=== PATIENT | female | born 1925 | race Caucasian/White ===

== ENCOUNTER 2016-03-13 14:19 | Inpatient (IN) | payer MEDICARE ==
[~2016-03-13] VITALS: Ht 154.9 cm; Wt 55.5 kg
--- NOTE | 2016-03-13 15:50 | EKG ---
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
[2016-03-13 16:00] LABS: BASO % 1 % (0-3); EOS % 4 % (0-3); HEMATOCRIT 31.6 % (36.0-47.0); HEMOGLOBIN 10.2 g/dL (12.0-15.5); LYMPH # 1.3 x10^3/uL (1.0-4.8); LYMPH % 20 % (24-48); MEAN CORPUSCULAR HEMOGLOBIN 29 pg (25-35); MEAN CORPUSCULAR HGB CONC 32 g/dL (31-37); MEAN CORPUSCULAR VOLUME 90 fL (79-100); MONO % 6 % (0-9); NEUT % 70 % (31-73); PLATELET COUNT 281 x10^3/uL (140-400); RED BLOOD COUNT 3.52 x10^6/uL (3.50-5.40); RED CELL DISTRIBUTION WIDTH 13.7 % (11.5-14.5); WHITE BLOOD COUNT 6.7 x10^3/uL (4.0-11.0)
[2016-03-13] MEDS ORDERED: IV NORMAL SALINE 1000ML BAG 1,000 ML IV SCH (16:00)
[2016-03-13 16:19] LABS: OBC FLU VALID
[2016-03-13 16:34] LABS: CALCIUM 8.8 mg/dL (8.5-10.1); CREATININE 1.1 mg/dL (0.6-1.0); GFR 46.8; POTASSIUM 4.2 mmol/L (3.5-5.1)
[2016-03-13 16:41] LABS: ALBUMIN 2.8 g/dL (3.4-5.0); ALBUMIN/GLOBULIN RATIO 0.6 (1.0-1.7); TOTAL BILIRUBIN 0.3 mg/dL (0.2-1.0); TOTAL PROTEIN 7.3 g/dL (6.4-8.2)
--- NOTE | 2016-03-13 16:47 | PHYS DOC ---
Past Medical History Past Medical History: Diabetes-Type II, High Cholesterol, Hypertension Additional Past Medical Histor: GLAUCOMA, MACULAR DEGENERATION, VENOUS INSUFFICENCY, Past Surgical History: Appendectomy Alcohol Use: None Drug Use: None Adult General Chief Complaint Chief Complaint: LOWER EXTREMITY SWELLING HPI HPI Patient is a 89 year old female who presents with complaint of lower extremity swelling. Patient states that she has had worsening symptoms over the past 3 days. Patient states that she has developed a small skin tear in the left lower extremity secondary to her edema. Patient was found during triage to have an oxygen saturation of 89% and was placed on 2 L/m of oxygen. Patient has had dyspnea on exertion. Patient has not had any fevers and denies any productive cough. Patient denies any history of congestive heart failure. Patient currently denies any pain. Review of Systems Review of Systems Constitutional: Denies fever or chills [] Eyes: Denies change in visual acuity, redness, or eye pain [] HENT: Denies nasal congestion or sore throat [] Respiratory: Shortness of breath [] Cardiovascular: Lower extremity edema, denies chest pain [] GI: Denies abdominal pain, nausea, vomiting, bloody stools or diarrhea [] : Denies dysuria or hematuria [] Musculoskeletal: Denies back pain or joint pain [] Integument: Denies rash or skin lesions [] Neurologic: Denies headache, focal weakness or sensory changes [] Endocrine: Denies polyuria or polydipsia [] Current Medications Current Medications Current Medications Medications (Trade) Dose Ordered Sig/Indy Start Time Stop Time Status Last Admin Dose Admin Sodium Chloride (Iv Sodium Chloride 0.9% 1000ml Bag) 1,000 ml @ 100 mls/hr Q10H 03/13/16 16:00 03/13/16 17:57 DC 03/13/16 16:39 100 MLS/HR Allergies Allergies Allergies Coded Allergies Type Severity Reaction Last Updated Verified Penicillins Allergy Intermediate 03/13/16 Yes amlodipine Allergy Intermediate 03/13/16 Yes influenza virus vacc trivalent, split Allergy Intermediate 03/13/16 Yes Physical Exam Physical Exam Constitutional: Alert, afebrile, appears in chronically poor health. [] HENT: Normocephalic, atraumatic, bilateral external ears normal, oropharynx moist, no oral exudates, nose normal. [] Eyes: PERRLA, EOMI, conjunctiva normal, no discharge. [] Neck: Normal range of motion, no tenderness, supple, no stridor. [] Cardiovascular:Heart rate regular rhythm, no murmur [] Lungs & Thorax: Nonlabored respirations, rales bilaterally, no wheezes [] Abdomen: Bowel sounds normal, soft, no tenderness, no masses, no pulsatile masses. [] Skin: Warm, dry, no erythema, no rash. [] Back: No tenderness, no CVA tenderness. [] Extremities: No tenderness, no cyanosis, no clubbing, ROM intact, 3+ pitting edema in the bilateral lower extremities. [] Neurologic: Alert and oriented X 3, normal motor function, normal sensory function, no focal deficits noted. [] Current Patient Data Vital Signs Vital Signs Date Time Temp Pulse Resp B/P Pulse Ox O2 Delivery O2 Flow Rate FiO2 03/13/16 14:49 98.2 62 16 168/74 89 Room Air 98.2 Lab Values Laboratory Tests Test 03/13/16 15:38 03/13/16 15:49 White Blood Count 6.7x10^3/uL (4.0-11.0) Red Blood Count 3.52x10^6/uL (3.50-5.40) Hemoglobin 10.2g/dL (12.0-15.5) L Hematocrit 31.6% (36.0-47.0) L Mean Corpuscular Volume 90fL (79-100) Mean Corpuscular Hemoglobin 29pg (25-35) Mean Corpuscular Hemoglobin Concent 32g/dL (31-37) Red Cell Distribution Width 13.7% (11.5-14.5) Platelet Count 281x10^3/uL (140-400) Neutrophils (%) (Auto) 70% (31-73) Lymphocytes (%) (Auto) 20% (24-48) L Monocytes (%) (Auto) 6% (0-9) Eosinophils (%) (Auto) 4% (0-3) H Basophils (%) (Auto) 1% (0-3) Neutrophils # (Auto) 4.7x10^3uL (1.8-7.7) Lymphocytes # (Auto) 1.3x10^3/uL (1.0-4.8) Monocytes # (Auto) 0.4x10^3/uL (0.0-1.1) Eosinophils # (Auto) 0.2x10^3/uL (0.0-0.7) Basophils # (Auto) 0.0x10^3/uL (0.0-0.2) Sodium Level 141mmol/L (136-145) Potassium Level 4.2mmol/L (3.5-5.1) Chloride Level 103mmol/L (98-107) Carbon Dioxide Level 30mmol/L (21-32) Anion Gap 8 (6-14) Blood Urea Nitrogen 31mg/dL (7-20) H Creatinine 1.1mg/dL (0.6-1.0) H Estimated GFR (Cockcroft-Gault) 46.8 BUN/Creatinine Ratio 28 (6-20) H Glucose Level 118mg/dL (70-99) H Calcium Level 8.8mg/dL (8.5-10.1) Total Bilirubin 0.3mg/dL (0.2-1.0) Aspartate Amino Transferase (AST) 15U/L (15-37) Alanine Aminotransferase (ALT) 16U/L (14-59) Alkaline Phosphatase 76U/L (46-116) Creatine Kinase 36U/L (26-192) Creatine Kinase MB (Mass) 0.7ng/mL (0.0-3.6) Creatine Kinase MB Relative Index % (0-4) Troponin I Quantitative < 0.017ng/mL (0.000-0.055) NR-Xmz-L-Type Natriuretic Peptide 1379pg/mL (0-449) H Total Protein 7.3g/dL (6.4-8.2) Albumin 2.8g/dL (3.4-5.0) L Albumin/Globulin Ratio 0.6 (1.0-1.7) L Influenza Type A Antigen Negative (NEGATIVE) Influenza Type B Antigen Negative (NEGATIVE) Laboratory Tests 03/13/16 15:38 Laboratory Tests 03/13/16 15:38 EKG EKG Interpreted by me: Heart rate 53, sinus rhythm, normal intervals, left axis deviation, no acute ST/T-wave abnormalities present [] Radiology/Procedures Radiology/Procedures [facility] [address] [place] [address] IMAGING REPORT Signed PATIENT: SONIA SAGE ACCOUNT: [id number] : 1925 LOCATION: ER AGE: 89 SEX: F EXAM STATUS: REG ER ORD. PHYSICIAN: BRIANDA PLASENCIA MD REASON: shortness of breath PROCEDURE: PORTABLE CHEST 1V Portable chest, 03/13/2016: History: Shortness of breath, lower extremity swelling No previous chest radiographs are available at this time for comparison purposes. The heart is enlarged. There is calcific plaquing and tortuosity of the thoracic aorta. The pulmonary vascularity is normal. There is minimal linear scarring or atelectasis in the left lower chest laterally. Mild pleural thickening inferolaterally on both sides is probably due to scarring. A tiny amount of pleural fluid cannot be entirely excluded. The bony structures are demineralized. IMPRESSION: 1. Cardiomegaly and aortic atherosclerosis. 2. Probable bibasilar pleural/parenchymal scarring. DICTATED and SIGNED BY: RUBEN FRYE MD DATE: 03/13/161658 CC: AMELIE BRUNER MD; BRIANDA PLASENCIA MD ~ [] Course & Med Decision Making Course & Med Decision Making Pertinent Labs and Imaging studies reviewed. (See chart for details) The patient's clinical picture is consistent with acute congestive heart failure. The patient's chest x-ray shows possible pleural fluid versus scarring. I feel that based off clinical exam and history that the patient has pleural fluid. The patient was started on IV Lasix in the emergency department. Patient will be admitted for continued diuresis and cardiology consult. I spoke with Dr. Velazquez who accepted care patient in hospital. Dragon Disclaimer Dragon Disclaimer This electronic medical record was generated, in whole or in part, using a voice recognition dictation system. Departure Departure Impression: Primary Impression: Acute congestive heart failure Additional Impressions: Hypoxia Moderate protein malnutrition Disposition: ADMITTED INPATIENT Admitting Physician: Marika Velazquez Condition: GUARDED Referrals: AMELIE BRUNER MD (PCP) Problem Qualifiers Primary Impression: Acute congestive heart failure Congestive heart failure type: unspecified congestive heart failure type Qualified Code: I50.9 - Heart failure, unspecified BRIANDA PLASENCIA MD Mar 13, 2016 16:47
[2016-03-13 16:49] LABS: CKMB MASS 0.7 ng/mL (0.0-3.6); CREATINE KINASE 36 U/L (26-192)
--- NOTE | 2016-03-13 17:03 | RAD ---
Portable chest, 03/13/2016: History: Shortness of breath, lower extremity swelling No previous chest radiographs are available at this time for comparison purposes. The heart is enlarged. There is calcific plaquing and tortuosity of the thoracic aorta. The pulmonary vascularity is normal. There is minimal linear scarring or atelectasis in the left lower chest laterally. Mild pleural thickening inferolaterally on both sides is probably due to scarring. A tiny amount of pleural fluid cannot be entirely excluded. The bony structures are demineralized. IMPRESSION: 1. Cardiomegaly and aortic atherosclerosis. 2. Probable bibasilar pleural/parenchymal scarring.
[2016-03-13] MEDS ORDERED: ONDANSETRON PF 4 MG/2 ML VIAL. IV PRN ×2 (17:15→17:56)
[2016-03-13] MEDS ORDERED: ACETAMINOPHEN 325 MG TABLET. PO PRN (17:15)
[2016-03-13] MEDS ORDERED: FUROSEMIDE 40 MG/4 ML VIAL IVP ONE (17:30)
[2016-03-13] MEDS ORDERED: HYDROCODONE/APAP 5/325MG TABLET. PO PRN (18:00)
[2016-03-13] MEDS ORDERED: MORPHINE SULFATE 2 MG/ML DISP.SYRIN. IV PRN (18:00)
--- NOTE | 2016-03-13 18:03 | PDOC1 ---
History and Physical Date of Admission Date of Admission DATE: 03/13/16 TIME: 17:57 Identification/Chief Complaint Chief Complaint leg swelling, bilateral Source Source: Chart review, Patient History of Present Illness History of Present Illness 89 y./o [place] female accompanied by dtr today,. pt lives in [facility], brought to ER bec of worsening and persistent bilateral LE swelling, AHs been fighting lymphedema for some time, was on lasix, claims legs got real swollen and sounded like migjht have popped a blister? or oozed with fluid at one point, No SOA, no CP CXR shows pulm edema, BNP elevated, Trops ok, Hgb 10, Crea 1,1 Got lasix 60 IV x [address] Leija to see the pt HX obtained form dtr Pt does not have hx CHF< no home meds prior and ambulates with walker Past Medical History Cardiovascular: No pertinent hx, Other (lymphedema, bilateral) Pulmonary: No pertinent hx GI: No pertinent hx Heme/Onc: No pertinent hx Hepatobiliary: No pertinent hx Psych: No pertinent hx Rheumatologic: No pertinent hx Infectious disease: No pertinent hx ENT: No pertinent hx Renal/: No pertinent hx Endocrine: No pertinent hx Dermatology: No pertinent hx Past Surgical History Past Surgical History: No pertinent history Family History Family History: No Significant Social History Smoke: No ALCOHOL: none Drugs: None Current Problem List Problem List Problems Medical Problems: (1) Acute CHF Status: Acute (2) Acute congestive heart failure Status: Acute Problems: Current Medications Current Medications Current Medications Sodium Chloride (Iv Sodium Chloride 0.9% 1000ml Bag) 1,000 ml @ 100 mls/hr Q10H IV Last administered on 03/13/16 16:39; Start 03/13/16 at 16:00; Stop at 01:59 Ondansetron HCl (Zofran) 4 mg PRN Q8HRS PRN IV NAUSEA/VOMITING; Start 03/13/16 at 17:15; Stop 03/14/16 at 17:14 Acetaminophen (Tylenol) 650 mg PRN Q4HRS PRN PO FEVER; Start 03/13/16 at 17:15 ; Stop 03/14/16 at 17:14 Furosemide (Lasix) 60 mg 1X ONCE IVP Last administered on 1/27/17at 17:40; Start 03/13/16 at 17:30; Stop 03/13/16 at 17:31; Status DC Allergies Allergies: Coded Allergies: Penicillins (Verified Allergy, Intermediate, 03/13/16) amlodipine (Verified Allergy, Intermediate, 03/13/16) influenza virus vacc trivalent, split (Verified Allergy, Intermediate, ) ROS General: No: Appetite, Chills, Fatigue, Malaise, Night Sweats, Other PSYCHOLOGICAL ROS: No: Anxiety, Behavioral Disorder, Concentration difficultie , Decreased libido, Depression, Disorientation, Hallucinations, Hostility, Irritablity, Memory difficulties, Mood Swings, Obsessive thoughts, Other, Physical abuse, Sexual abuse, Sleep disturbances, Suicidal ideation Eyes: No Blurry vision, No Decreased vision, No Double vision, No Dry eyes, No Excessive tearing, No Eye Pain, No Itchy Eyes, No Loss of vision, No Other, No Photophobia, No Scotomata, No Uses contacts, No Uses glasses HEENT: No: Epistaxis, Heacaches, Hearing change, Nasal congestion, Nasal discharge, Oral lesions, Other, Sinus pain, Sneezing, Snoring, Sore Throat, Tinnitus, Vertigo, Visual Changes, Vocal changes ALLERGY AND IMMUNOLOGY: No: Hives, Insect Bite Sensitivity, Itchy/Watery Eyes, Nasal Congestion, Other, Post Nasal Drip, Seasonal Allergies Hematological and Lymphatic: No: Bleeding Problems, Blood Clots, Blood Transfusions, Brusing, Night Sweats, Other, Pallor, Swollen Lymph Nodes ENDOCRINE: No: Breast Changes, Galactorrhea, Hair Pattern Changes, Hot Flashes , Malaise/lethargy, Mood Swings, Other, Palpitations, Polydipsia/polyuria, Skin Changes, Temperature Intolerance, Unexpected Weight Changes Breast: No New/Changing Breast Lumps, No Nipple changes, No Nipple discharge, No Other Respiratory: No: Cough, Hemoptysis, Orthopnea, Other, Pleuritic Pain, SOB with excertion, Shortness of breath, Sputum Changes, Stridor, Tachypnea, Wheezing Cardiovascular: No Chest Pain, No Edema, No Lt Headedness, No Orthopnea, No Other (leg edema), No Palpitations, No Paroxysmal Noc. Dyspnea Gastrointestinal: No Abdominal Pain, No Constipation, No Diarrhea, No Hematochezia, No Melena, No Nausea, No Other, No Vomiting Genitourinary: No , No , No , No , No , No , No , No Discharge, No Dysuria, No Flank Pain, No Frequency, No Hematuria, No Incontinence, No Other, No Pain, No Retention, No Urgency Musculoskeletal: Yes Other (leg edema) Physical Exam General: Alert, Oriented X3, Cooperative, No acute distress HEENT: Atraumatic, PERRLA, EOMI Lungs: Clear to auscultation, Normal air movement Heart: S1S2, RRR, no thrills, no rubs, no gallops, no murmurs Cardiovascular: S1, S2 Breasts: Normal Abdomen: Normal bowel sounds, Soft, No tenderness, No hepatosplenomegaly, No masses Extremities: Other (bilateral pitting edema plus 3-4, cold feet but palpable pulses) Skin: No rashes, No breakdown, No significant lesion Neuro: Normal gait, Normal speech, Strength at 5/5 X4 ext, Normal tone, Sensation intact, Cranial nerves 3-12 NL, Reflexes 2+ Vitals Vitals Vital Signs Date Time Temp Pulse Resp B/P Pulse Ox O2 Delivery O2 Flow Rate FiO2 03/13/16 14:49 98.2 62 16 168/74 89 Room Air 98.2 Labs Labs Laboratory Tests Test 03/13/16 15:38 03/13/16 15:49 White Blood Count 6.7x10^3/uL (4.0-11.0) Red Blood Count 3.52x10^6/uL (3.50-5.40) Hemoglobin 10.2g/dL (12.0-15.5) Hematocrit 31.6% (36.0-47.0) Mean Corpuscular Volume 90fL (79-100) Mean Corpuscular Hemoglobin 29pg (25-35) Mean Corpuscular Hemoglobin Concent 32g/dL (31-37) Red Cell Distribution Width 13.7% (11.5-14.5) Platelet Count 281x10^3/uL (140-400) Neutrophils (%) (Auto) 70% (31-73) Lymphocytes (%) (Auto) 20% (24-48) Monocytes (%) (Auto) 6% (0-9) Eosinophils (%) (Auto) 4% (0-3) Basophils (%) (Auto) 1% (0-3) Neutrophils # (Auto) 4.7x10^3uL (1.8-7.7) Lymphocytes # (Auto) 1.3x10^3/uL (1.0-4.8) Monocytes # (Auto) 0.4x10^3/uL (0.0-1.1) Eosinophils # (Auto) 0.2x10^3/uL (0.0-0.7) Basophils # (Auto) 0.0x10^3/uL (0.0-0.2) Sodium Level 141mmol/L (136-145) Potassium Level 4.2mmol/L (3.5-5.1) Chloride Level 103mmol/L (98-107) Carbon Dioxide Level 30mmol/L (21-32) Anion Gap 8 (6-14) Blood Urea Nitrogen 31mg/dL (7-20) Creatinine 1.1mg/dL (0.6-1.0) Estimated GFR (Cockcroft-Gault) 46.8 BUN/Creatinine Ratio 28 (6-20) Glucose Level 118mg/dL (70-99) Calcium Level 8.8mg/dL (8.5-10.1) Total Bilirubin 0.3mg/dL (0.2-1.0) Aspartate Amino Transf (AST/SGOT) 15U/L (15-37) Alanine Aminotransferase (ALT/SGPT) 16U/L (14-59) Alkaline Phosphatase 76U/L (46-116) Creatine Kinase 36U/L (26-192) Creatine Kinase MB (Mass) 0.7ng/mL (0.0-3.6) Creatine Kinase MB Relative Index % (0-4) Troponin I Quantitative < 0.017ng/mL (0.000-0.055) TU-Viz-O-Type Natriuretic Peptide 1379pg/mL (0-449) Total Protein 7.3g/dL (6.4-8.2) Albumin 2.8g/dL (3.4-5.0) Albumin/Globulin Ratio 0.6 (1.0-1.7) Influenza Type A Antigen Negative (NEGATIVE) Influenza Type B Antigen Negative (NEGATIVE) Laboratory Tests Test 03/13/16 15:38 03/13/16 15:49 White Blood Count 6.7x10^3/uL (4.0-11.0) Red Blood Count 3.52x10^6/uL (3.50-5.40) Hemoglobin 10.2g/dL (12.0-15.5) Hematocrit 31.6% (36.0-47.0) Mean Corpuscular Volume 90fL (79-100) Mean Corpuscular Hemoglobin 29pg (25-35) Mean Corpuscular Hemoglobin Concent 32g/dL (31-37) Red Cell Distribution Width 13.7% (11.5-14.5) Platelet Count 281x10^3/uL (140-400) Neutrophils (%) (Auto) 70% (31-73) Lymphocytes (%) (Auto) 20% (24-48) Monocytes (%) (Auto) 6% (0-9) Eosinophils (%) (Auto) 4% (0-3) Basophils (%) (Auto) 1% (0-3) Neutrophils # (Auto) 4.7x10^3uL (1.8-7.7) Lymphocytes # (Auto) 1.3x10^3/uL (1.0-4.8) Monocytes # (Auto) 0.4x10^3/uL (0.0-1.1) Eosinophils # (Auto) 0.2x10^3/uL (0.0-0.7) Basophils # (Auto) 0.0x10^3/uL (0.0-0.2) Sodium Level 141mmol/L (136-145) Potassium Level 4.2mmol/L (3.5-5.1) Chloride Level 103mmol/L (98-107) Carbon Dioxide Level 30mmol/L (21-32) Anion Gap 8 (6-14) Blood Urea Nitrogen 31mg/dL (7-20) Creatinine 1.1mg/dL (0.6-1.0) Estimated GFR (Cockcroft-Gault) 46.8 BUN/Creatinine Ratio 28 (6-20) Glucose Level 118mg/dL (70-99) Calcium Level 8.8mg/dL (8.5-10.1) Total Bilirubin 0.3mg/dL (0.2-1.0) Aspartate Amino Transf (AST/SGOT) 15U/L (15-37) Alanine Aminotransferase (ALT/SGPT) 16U/L (14-59) Alkaline Phosphatase 76U/L (46-116) Creatine Kinase 36U/L (26-192) Creatine Kinase MB (Mass) 0.7ng/mL (0.0-3.6) Creatine Kinase MB Relative Index % (0-4) Troponin I Quantitative < 0.017ng/mL (0.000-0.055) YF-Lqv-G-Type Natriuretic Peptide 1379pg/mL (0-449) Total Protein 7.3g/dL (6.4-8.2) Albumin 2.8g/dL (3.4-5.0) Albumin/Globulin Ratio 0.6 (1.0-1.7) Influenza Type A Antigen Negative (NEGATIVE) Influenza Type B Antigen Negative (NEGATIVE) VTE Prophylaxis Ordered VTE Prophylaxis Devices: Yes VTE Pharmacological Prophylaxi: Yes Assessment/Plan Assessment/Plan 1/ Bilateral LE edema 2. Pulm edema on CXR 3. Geriatric with mild pCM PLAN; LAsix IV Monitor lytes cards consult Likely will get at least echo Can check US dopplers megan the cold feet - but sensation is completely intact PT/OT OT for lymphedema dw dtr at bedside Seen at KORIN LOPEZ MD Mar 13, 2016 18:02
[2016-03-13 19:31] VITALS: BP 163/53
--- NOTE | 2016-03-13 19:33 | ACF ---
Admission Forms Criteria HEART FAILURE: COMMON COMPLICATIONS Clinical Indications for Inpatient Care (Place 'X' for any and all applicable criteria): Ongoing inpatient care may be indicated for heart failure with ANY ONE of the following (1)(2)(3)(4)(5): [ ]I. Ongoing need for care for primary condition requiring frequent therapy adjustments because of changes in cardiac function (eg, drug dosage changes for drugs that are renally metabolized) [ ]II. New-onset heart failure [ ]III. Heart failure with decreased urine output not responsive to attempts to optimize volume status [ ]IV. Acute cardiac ischemia causing or associated with failure [ X]V. Complications of heart failure, including ANY ONE of the following: [ ]a) Pericardial effusion [ ]b) Symptomatic pleural effusion [X ]c) O2 saturation <90% or PO2 < 60 mm Hg (8.0 kPa) on room air or require baseline supplemental O2 [X ]d) Tachypnea [ X]e) Dyspnea [ ]f) Syncope [ ]g) Change in mental status [ ]h) Acute renal insufficiency that is severe (reduction of more than 50% in estimated glomerular filtration rate from baseline) or progressive reduction of more than 25% in estimated glomerular filtration rate from baseline, with creatinine continuing to rise) [ ]i) Hemodynamic instability [ ]j) Anasarca [ ]k) Clinically significant metabolic abnormalities due to heart failure (eg, new-onset metabolic acidosis) Extended stay beyond goal length of stay for primary condition may be needed until ALL of the following are present(1)(3): [ ]a) Stable and effective diuretic regimen established (or patient on stable dialysis regimen if in chronic renal failure) [ ]b) Breathing comfortably at rest [ ]c) Saturation of arterial oxygen greater than 90% or at acceptable baseline [ ]d) Pulmonary edema absent or improved [ ]e) Hemodynamic stability [ ]f) Volume status acceptable on oral medication [ ]g) Peripheral or sacral edema absent or improved [ ]h) Renal function stable and manageable at a lower level of care [ ]i) Complications (eg, pleural effusion) resolved or manageable at a lower level of care [ ]j) Patient or caregiver has received written discharge instructions or educational material addressing activity level, diet, discharge medications, follow-up appointment, weight monitoring, and what to do if symptoms worsen The original [employer] content created by [employer] has been revised. The portions of the content which have been revised are identified through the use of italic text or in bold, and [facility] has neither reviewed nor approved the modified material.All other unmodified content is copyright [facility]. Please see references footnoted in the original [facility] edition 2016 Admission Criteria Met?: Yes JOAQUIN LLOYD Mar 13, 2016 19:33
[2016-03-13] MEDS ORDERED: CHOL20004 PO (21:25)
[2016-03-13] MEDS ORDERED: DORZ10DR3 OD (21:25)
[2016-03-13] MEDS ORDERED: SPIR25TA3 PO (21:25)
[2016-03-13] MEDS ORDERED: ACET325T9 PO (21:25)
[2016-03-13] MEDS ORDERED: OMEG1CAP6 PO (21:25)
[2016-03-13] MEDS ORDERED: LUTE20CA2 PO (21:25)
[2016-03-13] MEDS ORDERED: ATEN100T PO (21:25)
[2016-03-13] MEDS ORDERED: BIMA2.5D OD (21:25)
[2016-03-13] MEDS ORDERED: HYDR-2868 PO (21:25)
[2016-03-13] MEDS ORDERED: VALS320T2 PO (21:25)
[2016-03-13] MEDS ORDERED: NYST1POW2 PO (21:25)
[2016-03-13] MEDS ORDERED: ALPR0.25 PO (21:25)
[2016-03-13] MEDS ORDERED: SERT25TA4 PO (21:25)
[2016-03-13] MEDS ORDERED: FURO40TA4 PO (21:25)
[2016-03-13] MEDS ORDERED: DONE5TAB33 PO (21:25)
[2016-03-13] MEDS ORDERED: MELO-156 PO (21:25)
[2016-03-13] MEDS ORDERED: CLON0.2T PO (21:25)
[2016-03-13] MEDS ORDERED: SIMV40TA3 PO (21:25)
[2016-03-13] MEDS: ENOXAPARIN 30 MG/0.3 ML DISP.SYRIN. SQ SCH (22:09)
[2016-03-13 22:23] VITALS: BP 117/44
[2016-03-14] MEDS ORDERED: ACETAMINOPHEN 325 MG TABLET. PO PRN (03:30)
[2016-03-14] MEDS ORDERED: ALPRAZOLAM 0.25 MG TABLET PO PRN (03:30)
[2016-03-14 03:40] VITALS: BP 106/51
[2016-03-14 05:31] LABS: BASO % 1 % (0-3); EOS % 3 % (0-3); HEMATOCRIT 29.7 % (36.0-47.0); HEMOGLOBIN 9.9 g/dL (12.0-15.5); LYMPH # 1.9 x10^3/uL (1.0-4.8); LYMPH % 28 % (24-48); MEAN CORPUSCULAR HEMOGLOBIN 30 pg (25-35); MEAN CORPUSCULAR HGB CONC 33 g/dL (31-37); MEAN CORPUSCULAR VOLUME 89 fL (79-100); MONO % 8 % (0-9); NEUT % 61 % (31-73); PLATELET COUNT 239 x10^3/uL (140-400); RED BLOOD COUNT 3.34 x10^6/uL (3.50-5.40); RED CELL DISTRIBUTION WIDTH 13.4 % (11.5-14.5); WHITE BLOOD COUNT 6.7 x10^3/uL (4.0-11.0)
[2016-03-14 05:53] LABS: CALCIUM 8.5 mg/dL (8.5-10.1); CREATININE 0.9 mg/dL (0.6-1.0); POTASSIUM 3.8 mmol/L (3.5-5.1)
[2016-03-14 07:59] VITALS: BP 153/63
--- NOTE | 2016-03-14 08:20 | PDOC2 ---
WILFRIDO DRIVER [employer] 03/14/16 0820: CARDIAC CONSULT DATE OF CONSULT Date of Consult DATE: 03/14/16 TIME: 08:14 REASON FOR CONSULT Reason for Consult: CHF REFERRING PHYSICIAN Referring Physician: Dr. Quinonez SOURCE Source: Chart review, Patient HISTORY OF PRESENT ILLNESS HISTORY OF PRESENT ILLNESS This is an 89 yo female, with history of chronic LE edema, dementia, HTN, and diabetes, who presented with complaints of increasing lower extremity edema. HPI obtain with assistance from granddaughter as patient has dementia and difficulty recalling events. Patient resides as [facility]. LE edema has been ongoing for over 5 years now. Has recently, within the last couple of week , been worse. Left LE skin tears developed as a results of the increasing edema. Patient denies any SOA, SILVA, chest pain, palpitations, diaphoresis, dizziness, orthopnea, or recent illness/fevers. Granddaughter does report that she has noticed some SILVA over the last years but no worse than normal, recently. Report uncontrolled HTN in the past but has lost 50 # over the last couple of years and has much less life stressors and BP has been controlled. Was started on Lasix last week by facility PCP due to increasing edema. Reports compliance with medications. Denies any h/o CHF or previous cardiac workup. PAST MEDICAL HISTORY Cardiovascular: HTN CENTRAL NERVOUS SYSTEM: Dementia, Periperal neuropathy GI: No pertinent hx Heme/Onc: No pertinent hx Hepatobiliary: No pertinent hx Psych: Anxiety, Depression Musculoskeletal: Osteoarthritis Rheumatologic: No pertinent hx Infectious disease: No pertinent hx ENT: No pertinent hx Renal/: Urinary Incontinence Endocrine: Diabetes Dermatology: No pertinent hx PAST SURGICAL HISTORY Past Surgical History: Appendectomy FAMILY HISTORY Family History: Heart Disease, Hypertension SOCIAL HISTORY Smoke: No ALCOHOL: none Drugs: None Lives: Half-Way CURRENT MEDICATIONS CURRENT MEDICATIONS Current Medications Medications (Trade) Dose Ordered Sig/Indy Route PRN Reason Start Time Stop Time Status Last Admin Dose Admin Sodium Chloride (Iv Sodium Chloride 0.9% 1000ml Bag) 1,000 ml @ 100 mls/hr Q10H IV 03/13/16 16:00 03/13/16 17:57 DC 03/13/16 16:39 Furosemide (Lasix) 60 mg 1X ONCE IVP 03/13/16 17:30 03/13/16 17:31 DC 03/13/16 17:40 Enoxaparin Sodium (Lovenox 30mg Syringe) 30 mg Q24H SQ 03/13/16 19:00 03/13/16 22:09 ALLERGIES ALLERGIES: Coded Allergies: Penicillins (Verified Allergy, Intermediate, 03/13/16) amlodipine (Verified Allergy, Intermediate, 03/13/16) influenza virus vacc trivalent, split (Verified Allergy, Intermediate, ) ROS Review of System 14 point ROS conducted with pertinent positives noted above in HPI, although limited due to dementia PHYSICAL EXAM General: Alert, Cooperative, No acute distress, Other (oriented to person and place) HEENT: Atraumatic, Mucous membr. moist/pink Lungs: Clear to auscultation, Normal air movement Heart: Regular rate, Other (2/6 systolic murmur ) Abdomen: Soft, No tenderness Extremities: No cyanosis, Normal pulses, Other (1-2+ bi LE edema, chronic venous stasis changes to bi LE ) Skin: No breakdown, No significant lesion Neuro: Normal speech, Sensation intact Psych/Mental Status: Mood NL, Other (forgetful) MUSCULOSKELETAL: Osteoarthritic changes both hands VITALS VITALS Vital Signs Date Time Temp Pulse Resp B/P Pulse Ox O2 Delivery O2 Flow Rate FiO2 03/14/16 03:40 98.3 51 14 106/51 96 Nasal Cannula 2.0 98.3 LABS Lab: Laboratory Tests Test 03/13/16 15:38 03/13/16 15:49 03/13/16 23:00 03/14/16 05:00 White Blood Count 6.7x10^3/uL (4.0-11.0) 6.7x10^3/uL (4.0-11.0) Red Blood Count 3.52x10^6/uL (3.50-5.40) 3.34x10^6/uL (3.50-5.40) Hemoglobin 10.2g/dL (12.0-15.5) 9.9g/dL (12.0-15.5) Hematocrit 31.6% (36.0-47.0) 29.7% (36.0-47.0) Mean Corpuscular Volume 90fL (79-100) 89fL (79-100) Mean Corpuscular Hemoglobin 29pg (25-35) 30pg (25-35) Mean Corpuscular Hemoglobin Concent 32g/dL (31-37) 33g/dL (31-37) Red Cell Distribution Width 13.7% (11.5-14.5) 13.4% (11.5-14.5) Platelet Count 281x10^3/uL (140-400) 239x10^3/uL (140-400) Neutrophils (%) (Auto) 70% (31-73) 61% (31-73) Lymphocytes (%) (Auto) 20% (24-48) 28% (24-48) Monocytes (%) (Auto) 6% (0-9) 8% (0-9) Eosinophils (%) (Auto) 4% (0-3) 3% (0-3) Basophils (%) (Auto) 1% (0-3) 1% (0-3) Neutrophils # (Auto) 4.7x10^3uL (1.8-7.7) 4.1x10^3uL (1.8-7.7) Lymphocytes # (Auto) 1.3x10^3/uL (1.0-4.8) 1.9x10^3/uL (1.0-4.8) Monocytes # (Auto) 0.4x10^3/uL (0.0-1.1) 0.5x10^3/uL (0.0-1.1) Eosinophils # (Auto) 0.2x10^3/uL (0.0-0.7) 0.2x10^3/uL (0.0-0.7) Basophils # (Auto) 0.0x10^3/uL (0.0-0.2) 0.0x10^3/uL (0.0-0.2) Sodium Level 141mmol/L (136-145) 141mmol/L (136-145) Potassium Level 4.2mmol/L (3.5-5.1) 3.8mmol/L (3.5-5.1) Chloride Level 103mmol/L (98-107) 103mmol/L (98-107) Carbon Dioxide Level 30mmol/L (21-32) 30mmol/L (21-32) Anion Gap 8 (6-14) 8 (6-14) Blood Urea Nitrogen 31mg/dL (7-20) 28mg/dL (7-20) Creatinine 1.1mg/dL (0.6-1.0) 0.9mg/dL (0.6-1.0) Estimated GFR (Cockcroft-Gault) 46.8 59.0 BUN/Creatinine Ratio 28 (6-20) Glucose Level 118mg/dL (70-99) 100mg/dL (70-99) Calcium Level 8.8mg/dL (8.5-10.1) 8.5mg/dL (8.5-10.1) Total Bilirubin 0.3mg/dL (0.2-1.0) Aspartate Amino Transf (AST/SGOT) 15U/L (15-37) Alanine Aminotransferase (ALT/SGPT) 16U/L (14-59) Alkaline Phosphatase 76U/L (46-116) Creatine Kinase 36U/L (26-192) Creatine Kinase MB (Mass) 0.7ng/mL (0.0-3.6) Creatine Kinase MB Relative Index % (0-4) Troponin I Quantitative < 0.017ng/mL (0.000-0.055) < 0.017ng/mL (0.000-0.055) < 0.017ng/mL (0.000-0.055) FO-Fhx-H-Type Natriuretic Peptide 1379pg/mL (0-449) Total Protein 7.3g/dL (6.4-8.2) Albumin 2.8g/dL (3.4-5.0) Albumin/Globulin Ratio 0.6 (1.0-1.7) Influenza Type A Antigen Negative (NEGATIVE) Influenza Type B Antigen Negative (NEGATIVE) ASSESSMENT/PLAN ASSESSMENT/PLAN 1. Chronic LE edema with chronic venous insufficiency NT mildly elevated at 1379, but based upon age adjustment, is insignificant. No overt s/s of acute heart failure. Will check echo in am. LE doppler pending. Supports stocking. Discussed elevating LE 2. Hypertension presently controlled. will monitor to assess need for medication titration if elevated, consider converting atenolol to labetalol for better control. 3. Sinus bradycardia HR noted to be in 30's overnight. Presently in low 50's at rest Will hold atenolol for now and stop clonidine. RN to give atenolol if HR maintained >60. Hydralazine PRN for rebound HTN 4. Diabetes per PCP 5. Dementia Problems: KYREE STEVENS MD 03/14/16 1206: CARDIAC CONSULT ALLERGIES ALLERGIES: Coded Allergies: Penicillins (Verified Allergy, Intermediate, 03/13/16) amlodipine (Verified Allergy, Intermediate, 03/13/16) influenza virus vacc trivalent, split (Verified Allergy, Intermediate, ) ASSESSMENT/PLAN ASSESSMENT/PLAN Patient seen and examined. Agree with DENTAL EQUIPMENT INSTALLER AND SERVICER's assessment and plan. Lower extremity edema most probably secondary to venous insufficiency - improved with Lasix. Patient does not have any clinical evidence for congestive heart failure. Check 2-D echo to assess LV systolic function. Agree with holding atenolol for sinus bradycardia. Plan for outpatient venous duplex scan to assess the significance of venous reflux. Thank you for your consultation. Problems: WILFRIDO DRIVER APRN Mar 14, 2016 08:20 KYREE STEVENS MD Mar 14, 2016 12:06
--- NOTE | 2016-03-14 08:23 | RAD ---
EXAM: Bilateral lower extremity venous Doppler sonogram. HISTORY: Swelling. TECHNIQUE: Grayscale and color Doppler sonographic imaging of the lower activity veins with spectral waveform analysis was performed. COMPARISON: None. FINDINGS: There is normal color flow, normal compressibility and there are normal spectral waveforms within the lower extremity veins. There is bilateral lower extremity soft tissue edema. IMPRESSION: No Doppler evidence of lower extremity venous thrombosis.
[2016-03-14] MEDS: CLONIDINE HCL 0.2 MG TABLET PO SCH ×2 (09:00→21:00)
[2016-03-14] MEDS: ATENOLOL 50 MG TABLET PO SCH (09:00)
[2016-03-14] MEDS: NYSTATIN TOPICAL POWDER 15GM BOTTLE. TP SCH ×2 (09:00→19:55)
[2016-03-14] MEDS: SPIRONOLACTONE 25 MG TABLET PO SCH (09:00)
[2016-03-14] MEDS: DORZOLAMIDE 2% OPHTH SOLUTION 10ML BOTTLE. OD SCH ×2 (09:06→19:56)
[2016-03-14] MEDS: HYDRALAZINE 25 MG TABLET PO SCH ×3 (09:07→19:54)
[2016-03-14] MEDS: LOSARTAN POTASSIUM 50 MG TABLET. PO SCH (09:07)
[2016-03-14] MEDS: MULTIVITAMIN EYE FORMULA CAPSULE. PO SCH (09:07)
[2016-03-14] MEDS: OMEGA-3 FATTY ACIDS/FISH OIL 1,000 MG CAPSULE. PO SCH (09:07)
[2016-03-14] MEDS: FUROSEMIDE 40 MG TABLET PO SCH (09:07)
[2016-03-14] MEDS: MELOXICAM 7.5 MG TABLET PO SCH (09:08)
[2016-03-14 11:56] VITALS: BP 152/44
--- NOTE | 2016-03-14 12:39 | PDOC ---
PROGRESS NOTES Chief Complaint Chief Complaint 1. Bilateral LE edema, venous insuff. 2. Pulm edema on CXR 3. Geriatric with mild pCM, weakness, acquired 4. some dementia 5. symptomatic bradycardia History of Present Illness History of Present Illness better s/p Lasix IV Monitor lytes cards consult DC b-leslie for tamar echo PT/OT OT for lymphedema feels better today, cont current Vitals Vitals Vital Signs Date Time Temp Pulse Resp B/P Pulse Ox O2 Delivery O2 Flow Rate FiO2 03/14/16 11:56 98.4 44 20 152/44 91 Nasal Cannula 2.0 98.4 Physical Exam General: Alert, Cooperative, No acute distress, Other (oriented to person and place) Heart: Regular rate, Other (2/6 systolic murmur ) Abdomen: Soft, No tenderness Extremities: No cyanosis, Normal pulses, Other (1-2+ bi LE edema, chronic venous stasis changes to bi LE ) Skin: No breakdown, No significant lesion Labs LABS Laboratory Tests Test 03/13/16 15:38 03/13/16 15:49 03/13/16 23:00 03/14/16 05:00 White Blood Count 6.7x10^3/uL (4.0-11.0) 6.7x10^3/uL (4.0-11.0) Red Blood Count 3.52x10^6/uL (3.50-5.40) 3.34x10^6/uL (3.50-5.40) Hemoglobin 10.2g/dL (12.0-15.5) 9.9g/dL (12.0-15.5) Hematocrit 31.6% (36.0-47.0) 29.7% (36.0-47.0) Mean Corpuscular Volume 90fL (79-100) 89fL (79-100) Mean Corpuscular Hemoglobin 29pg (25-35) 30pg (25-35) Mean Corpuscular Hemoglobin Concent 32g/dL (31-37) 33g/dL (31-37) Red Cell Distribution Width 13.7% (11.5-14.5) 13.4% (11.5-14.5) Platelet Count 281x10^3/uL (140-400) 239x10^3/uL (140-400) Neutrophils (%) (Auto) 70% (31-73) 61% (31-73) Lymphocytes (%) (Auto) 20% (24-48) 28% (24-48) Monocytes (%) (Auto) 6% (0-9) 8% (0-9) Eosinophils (%) (Auto) 4% (0-3) 3% (0-3) Basophils (%) (Auto) 1% (0-3) 1% (0-3) Neutrophils # (Auto) 4.7x10^3uL (1.8-7.7) 4.1x10^3uL (1.8-7.7) Lymphocytes # (Auto) 1.3x10^3/uL (1.0-4.8) 1.9x10^3/uL (1.0-4.8) Monocytes # (Auto) 0.4x10^3/uL (0.0-1.1) 0.5x10^3/uL (0.0-1.1) Eosinophils # (Auto) 0.2x10^3/uL (0.0-0.7) 0.2x10^3/uL (0.0-0.7) Basophils # (Auto) 0.0x10^3/uL (0.0-0.2) 0.0x10^3/uL (0.0-0.2) Sodium Level 141mmol/L (136-145) 141mmol/L (136-145) Potassium Level 4.2mmol/L (3.5-5.1) 3.8mmol/L (3.5-5.1) Chloride Level 103mmol/L (98-107) 103mmol/L (98-107) Carbon Dioxide Level 30mmol/L (21-32) 30mmol/L (21-32) Anion Gap 8 (6-14) 8 (6-14) Blood Urea Nitrogen 31mg/dL (7-20) 28mg/dL (7-20) Creatinine 1.1mg/dL (0.6-1.0) 0.9mg/dL (0.6-1.0) Estimated GFR (Cockcroft-Gault) 46.8 59.0 BUN/Creatinine Ratio 28 (6-20) Glucose Level 118mg/dL (70-99) 100mg/dL (70-99) Calcium Level 8.8mg/dL (8.5-10.1) 8.5mg/dL (8.5-10.1) Total Bilirubin 0.3mg/dL (0.2-1.0) Aspartate Amino Transf (AST/SGOT) 15U/L (15-37) Alanine Aminotransferase (ALT/SGPT) 16U/L (14-59) Alkaline Phosphatase 76U/L (46-116) Creatine Kinase 36U/L (26-192) Creatine Kinase MB (Mass) 0.7ng/mL (0.0-3.6) Creatine Kinase MB Relative Index % (0-4) Troponin I Quantitative < 0.017ng/mL (0.000-0.055) < 0.017ng/mL (0.000-0.055) < 0.017ng/mL (0.000-0.055) WY-Nbf-Q-Type Natriuretic Peptide 1379pg/mL (0-449) Total Protein 7.3g/dL (6.4-8.2) Albumin 2.8g/dL (3.4-5.0) Albumin/Globulin Ratio 0.6 (1.0-1.7) Influenza Type A Antigen Negative (NEGATIVE) Influenza Type B Antigen Negative (NEGATIVE) Review of Systems Review of Systems no n.v.d Assessment and Plan Assessmemt and Plan Problems Medical Problems: (1) Acute CHF Status: Acute (2) Acute congestive heart failure Status: Acute (3) Hypoxia Status: Acute (4) Moderate protein malnutrition Status: Acute Problems: Comment Review of Relevant I have reviewed the following items clarita (where applicable) has been applied. Labs Laboratory Tests Test 03/13/16 15:38 03/13/16 15:49 03/13/16 23:00 03/14/16 05:00 White Blood Count 6.7x10^3/uL (4.0-11.0) 6.7x10^3/uL (4.0-11.0) Red Blood Count 3.52x10^6/uL (3.50-5.40) 3.34x10^6/uL (3.50-5.40) Hemoglobin 10.2g/dL (12.0-15.5) 9.9g/dL (12.0-15.5) Hematocrit 31.6% (36.0-47.0) 29.7% (36.0-47.0) Mean Corpuscular Volume 90fL (79-100) 89fL (79-100) Mean Corpuscular Hemoglobin 29pg (25-35) 30pg (25-35) Mean Corpuscular Hemoglobin Concent 32g/dL (31-37) 33g/dL (31-37) Red Cell Distribution Width 13.7% (11.5-14.5) 13.4% (11.5-14.5) Platelet Count 281x10^3/uL (140-400) 239x10^3/uL (140-400) Neutrophils (%) (Auto) 70% (31-73) 61% (31-73) Lymphocytes (%) (Auto) 20% (24-48) 28% (24-48) Monocytes (%) (Auto) 6% (0-9) 8% (0-9) Eosinophils (%) (Auto) 4% (0-3) 3% (0-3) Basophils (%) (Auto) 1% (0-3) 1% (0-3) Neutrophils # (Auto) 4.7x10^3uL (1.8-7.7) 4.1x10^3uL (1.8-7.7) Lymphocytes # (Auto) 1.3x10^3/uL (1.0-4.8) 1.9x10^3/uL (1.0-4.8) Monocytes # (Auto) 0.4x10^3/uL (0.0-1.1) 0.5x10^3/uL (0.0-1.1) Eosinophils # (Auto) 0.2x10^3/uL (0.0-0.7) 0.2x10^3/uL (0.0-0.7) Basophils # (Auto) 0.0x10^3/uL (0.0-0.2) 0.0x10^3/uL (0.0-0.2) Sodium Level 141mmol/L (136-145) 141mmol/L (136-145) Potassium Level 4.2mmol/L (3.5-5.1) 3.8mmol/L (3.5-5.1) Chloride Level 103mmol/L (98-107) 103mmol/L (98-107) Carbon Dioxide Level 30mmol/L (21-32) 30mmol/L (21-32) Anion Gap 8 (6-14) 8 (6-14) Blood Urea Nitrogen 31mg/dL (7-20) 28mg/dL (7-20) Creatinine 1.1mg/dL (0.6-1.0) 0.9mg/dL (0.6-1.0) Estimated GFR (Cockcroft-Gault) 46.8 59.0 BUN/Creatinine Ratio 28 (6-20) Glucose Level 118mg/dL (70-99) 100mg/dL (70-99) Calcium Level 8.8mg/dL (8.5-10.1) 8.5mg/dL (8.5-10.1) Total Bilirubin 0.3mg/dL (0.2-1.0) Aspartate Amino Transf (AST/SGOT) 15U/L (15-37) Alanine Aminotransferase (ALT/SGPT) 16U/L (14-59) Alkaline Phosphatase 76U/L (46-116) Creatine Kinase 36U/L (26-192) Creatine Kinase MB (Mass) 0.7ng/mL (0.0-3.6) Creatine Kinase MB Relative Index % (0-4) Troponin I Quantitative < 0.017ng/mL (0.000-0.055) < 0.017ng/mL (0.000-0.055) < 0.017ng/mL (0.000-0.055) TJ-Aco-B-Type Natriuretic Peptide 1379pg/mL (0-449) Total Protein 7.3g/dL (6.4-8.2) Albumin 2.8g/dL (3.4-5.0) Albumin/Globulin Ratio 0.6 (1.0-1.7) Influenza Type A Antigen Negative (NEGATIVE) Influenza Type B Antigen Negative (NEGATIVE) Laboratory Tests Test 03/13/16 15:38 03/13/16 15:49 03/13/16 23:00 03/14/16 05:00 White Blood Count 6.7x10^3/uL (4.0-11.0) 6.7x10^3/uL (4.0-11.0) Red Blood Count 3.52x10^6/uL (3.50-5.40) 3.34x10^6/uL (3.50-5.40) Hemoglobin 10.2g/dL (12.0-15.5) 9.9g/dL (12.0-15.5) Hematocrit 31.6% (36.0-47.0) 29.7% (36.0-47.0) Mean Corpuscular Volume 90fL (79-100) 89fL (79-100) Mean Corpuscular Hemoglobin 29pg (25-35) 30pg (25-35) Mean Corpuscular Hemoglobin Concent 32g/dL (31-37) 33g/dL (31-37) Red Cell Distribution Width 13.7% (11.5-14.5) 13.4% (11.5-14.5) Platelet Count 281x10^3/uL (140-400) 239x10^3/uL (140-400) Neutrophils (%) (Auto) 70% (31-73) 61% (31-73) Lymphocytes (%) (Auto) 20% (24-48) 28% (24-48) Monocytes (%) (Auto) 6% (0-9) 8% (0-9) Eosinophils (%) (Auto) 4% (0-3) 3% (0-3) Basophils (%) (Auto) 1% (0-3) 1% (0-3) Neutrophils # (Auto) 4.7x10^3uL (1.8-7.7) 4.1x10^3uL (1.8-7.7) Lymphocytes # (Auto) 1.3x10^3/uL (1.0-4.8) 1.9x10^3/uL (1.0-4.8) Monocytes # (Auto) 0.4x10^3/uL (0.0-1.1) 0.5x10^3/uL (0.0-1.1) Eosinophils # (Auto) 0.2x10^3/uL (0.0-0.7) 0.2x10^3/uL (0.0-0.7) Basophils # (Auto) 0.0x10^3/uL (0.0-0.2) 0.0x10^3/uL (0.0-0.2) Sodium Level 141mmol/L (136-145) 141mmol/L (136-145) Potassium Level 4.2mmol/L (3.5-5.1) 3.8mmol/L (3.5-5.1) Chloride Level 103mmol/L (98-107) 103mmol/L (98-107) Carbon Dioxide Level 30mmol/L (21-32) 30mmol/L (21-32) Anion Gap 8 (6-14) 8 (6-14) Blood Urea Nitrogen 31mg/dL (7-20) 28mg/dL (7-20) Creatinine 1.1mg/dL (0.6-1.0) 0.9mg/dL (0.6-1.0) Estimated GFR (Cockcroft-Gault) 46.8 59.0 BUN/Creatinine Ratio 28 (6-20) Glucose Level 118mg/dL (70-99) 100mg/dL (70-99) Calcium Level 8.8mg/dL (8.5-10.1) 8.5mg/dL (8.5-10.1) Total Bilirubin 0.3mg/dL (0.2-1.0) Aspartate Amino Transf (AST/SGOT) 15U/L (15-37) Alanine Aminotransferase (ALT/SGPT) 16U/L (14-59) Alkaline Phosphatase 76U/L (46-116) Creatine Kinase 36U/L (26-192) Creatine Kinase MB (Mass) 0.7ng/mL (0.0-3.6) Creatine Kinase MB Relative Index % (0-4) Troponin I Quantitative < 0.017ng/mL (0.000-0.055) < 0.017ng/mL (0.000-0.055) < 0.017ng/mL (0.000-0.055) LS-Owr-N-Type Natriuretic Peptide 1379pg/mL (0-449) Total Protein 7.3g/dL (6.4-8.2) Albumin 2.8g/dL (3.4-5.0) Albumin/Globulin Ratio 0.6 (1.0-1.7) Influenza Type A Antigen Negative (NEGATIVE) Influenza Type B Antigen Negative (NEGATIVE) Medications Current Medications Sodium Chloride (Iv Sodium Chloride 0.9% 1000ml Bag) 1,000 ml @ 100 mls/hr Q10H IV Last administered on 03/13/16 16:39; Start 03/13/16 at 16:00; Stop at 17:57; Status DC Ondansetron HCl (Zofran) 4 mg PRN Q8HRS PRN IV NAUSEA/VOMITING; Start 03/13/16 at 17:15; Stop 03/13/16 at 17:57; Status DC Acetaminophen (Tylenol) 650 mg PRN Q4HRS PRN PO FEVER; Start 03/13/16 at 17:15 ; Stop 03/14/16 at 17:14 Furosemide (Lasix) 60 mg 1X ONCE IVP Last administered on 03/13/16 17:40; Start 03/13/16 at 17:30; Stop 03/13/16 at 17:31; Status DC Ondansetron HCl (Zofran) 4 mg PRN Q6HRS PRN IV NAUSEA/VOMITING; Start 03/13/16 at 17:56 Acetaminophen/ Hydrocodone Bitart (Lortab 5/325) 1 tab PRN Q4HRS PRN PO PAIN; Start 03/13/16 at 18:00 Morphine Sulfate 1 mg PRN Q2HR PRN IV PAIN; Start 03/13/16 at 18:00 Enoxaparin Sodium (Lovenox 30mg Syringe) 30 mg Q24H SQ Last administered on 22:09; Start 03/13/16 at 19:00 Acetaminophen (Tylenol) 650 mg PRN Q6HRS PRN PO MILD PAIN / TEMP; Start at 03:30 Alprazolam (Xanax) 0.25 mg PRN Q8HRS PRN PO ANXIETY / AGITATION; Start at 03:30 Clonidine HCl (Catapres) 0.2 mg BID PO ; Start 03/14/16 at 09:00 Donepezil HCl (Aricept) 5 mg HS PO ; Start 03/14/16 at 21:00 Dorzolamide HCl (Trusopt) 1 drop BID OD Last administered on 03/14/16 09:06; Start 03/14/16 at 09:00 Furosemide (Lasix) 40 mg DAILY PO Last administered on 03/14/16 09:07; Start 03/14/16 at 09:00 Hydralazine HCl (Apresoline) 25 mg TID PO Last administered on 03/14/16 09:07 ; Start 03/14/16 at 09:00 Meloxicam (Mobic) 7.5 mg DAILY PO Last administered on 03/14/16 09:08; Start 03/14/16 at 09:00 Fish Oil (Fish Oil) 1,000 mg DAILY08 PO Last administered on 03/14/16 09:07; Start 03/14/16 at 08:00 Sertraline HCl (Zoloft) 25 mg QHS PO ; Start 03/14/16 at 21:00 Simvastatin (Zocor) 40 mg QHS PO ; Start 03/14/16 at 21:00 Spironolactone (Aldactone) 25 mg DAILY PO Last administered on 03/14/16 09:00 ; Start 03/14/16 at 09:00 Atenolol (Tenormin) 100 mg DAILY PO ; Start 03/14/16 at 09:00 Latanoprost (Xalatan) 1 drop QHS OD ; Start 03/14/16 at 21:00 Multivitamins/ Minerals (Ocuvite Lutein) 1 cap DAILY PO Last administered on 09:07; Start 03/14/16 at 09:00 Nystatin (Nystop) 1 yessi BID TP Last administered on 03/14/16 09:00; Start at 09:00 Losartan Potassium (Cozaar) 100 mg DAILY PO Last administered on 03/14/16 09: 07; Start 03/14/16 at 09:00 Hydralazine HCl (Apresoline) 10 mg PRN Q4HRS PRN IVP ELEVATED BP, SEE COMMENTS ; Start 03/14/16 at 09:30 Active Scripts Active Reported Clonidine Hcl 0.2 Mg Tablet 0.2 Mg PO BID Aricept (Donepezil Hcl) 5 Mg Tablet 5 Mg PO HS Atenolol 100 Mg Tablet 100 Mg PO DAILY Xanax (Alprazolam) 0.25 Mg Tablet 0.25 Mg PO PRN Q8HRS PRN Vitamin D-3 (Cholecalciferol (Vitamin D3)) 2,000 Unit Capsule 1,000 Unit PO Tylenol (Acetaminophen) 325 Mg Tablet 650 Mg PO PRN Q6HRS Spironolactone 25 Mg Tablet 25 Mg PO DAILY Simvastatin 40 Mg Tablet 1 Tab PO QHS Sertraline Hcl 25 Mg Tablet 25 Mg PO QHS Nystatin 1 Each Powder.ea. 1 Each PO BID Meloxicam 7.5 Mg Tablet 7.5 Mg PO DAILY Lutein 20 Mg Capsule 20 Mg PO DAILY Lumigan (Bimatoprost) 2.5 Ml Drops 2.5 Ml OD QHS Hydralazine Hcl 25 Mg Tablet 1 Tab PO TID Furosemide 40 Mg Tablet 40 Mg PO DAILY Fish Oil 1,000 Mg Capsule ([place]-3 Fatty Acids/Fish Oil) 1 Each Capsule 2 Each PO DAILY08 Dorzolamide Hcl 10 Ml Drops 1 Drop OD BID Diovan (Valsartan) 320 Mg Tablet 320 Mg PO DAILY Vitals/I & O Vital Sign - Last 24 Hours 03/13/16 03/13/16 03/13/16 03/13/16 14:49 15:30 16:00 16:30 Temp 98.2 98.2 Pulse 62 44 40 40 Resp 16 16 15 14 B/P 168/74 147/65 178/72 171/69 Pulse Ox 89 98 98 99 O2 Delivery Room Air Nasal Cannula Nasal Cannula Nasal Cannula O2 Flow Rate 2 2 2 03/13/16 03/13/16 03/13/16 03/13/16 17:00 17:30 18:00 19:31 Temp 98.2 98.2 Pulse 40 56 48 46 Resp 15 15 30 20 B/P 165/67 195/77 157/65 163/53 Pulse Ox 98 98 97 98 O2 Delivery Nasal Cannula Nasal Cannula Nasal Cannula Nasal Cannula O2 Flow Rate 2 2 2 2.0 03/13/16 03/13/16 03/13/16 03/14/16 19:31 20:00 22:23 03:40 Temp 98.2 98.3 98.3 98.2 98.3 98.3 Pulse 46 49 51 Resp 20 18 14 B/P 163/53 117/44 106/51 Pulse Ox 98 95 96 O2 Delivery Nasal Cannula Nasal Cannula Nasal Cannula Nasal Cannula O2 Flow Rate 2.0 2.0 2.0 2.0 03/14/16 03/14/16 03/14/16 03/14/16 07:58 07:59 09:07 09:07 Temp 98.3 98.3 Pulse 53 58 58 Resp 19 B/P 153/63 153/63 153/63 Pulse Ox 90 O2 Delivery Nasal Cannula Nasal Cannula O2 Flow Rate 2.0 2.0 03/14/16 11:56 Temp 98.4 98.4 Pulse 44 Resp 20 B/P 152/44 Pulse Ox 91 O2 Delivery Nasal Cannula O2 Flow Rate 2.0 Intake and Output 03/13/16 03/13/16 03/14/16 15:00 23:00 07:00 Intake Total 200 ml 150 ml Output Total 450 ml 125 ml Balance -250 ml 25 ml EUNICE NAIK MD Mar 14, 2016 12:38
[2016-03-14] MEDS ORDERED: BRIM5DRO2 OP (13:41)
[2016-03-14 14:17] VITALS: BP 148/70
[2016-03-14 19:15] VITALS: BP 80/62
[2016-03-14] MEDS: DONEPEZIL HCL 5 MG TABLET. PO SCH (19:55)
[2016-03-14] MEDS: SIMVASTATIN 40 MG TABLET. PO SCH (19:55)
[2016-03-14] MEDS: SERTRALINE 25 MG TABLET. PO SCH (19:55)
[2016-03-14] MEDS: ENOXAPARIN 30 MG/0.3 ML DISP.SYRIN. SQ SCH (19:55)
[2016-03-14] MEDS: LATANOPROST 0.005% OPHTH SOLUTION 2.5ML BOTTLE. OD SCH (19:56)
[2016-03-14] MEDS: hydrALAZINE 20 MG/ML VIAL. IVP PRN (22:04)
[2016-03-14 23:35] VITALS: BP 127/63
[2016-03-15] VITALS (7 sets, daily range): BP systolic 140–197; BP diastolic 50–70
[2016-03-15] MEDS: hydrALAZINE 20 MG/ML VIAL. IVP PRN ×2 (04:03→23:59)
[2016-03-15] MEDS: CLONIDINE HCL 0.2 MG TABLET PO SCH (09:00)
[2016-03-15] MEDS: OMEGA-3 FATTY ACIDS/FISH OIL 1,000 MG CAPSULE. PO SCH (09:30)
[2016-03-15] MEDS: FUROSEMIDE 40 MG TABLET PO SCH (09:30)
[2016-03-15] MEDS: MELOXICAM 7.5 MG TABLET PO SCH (09:30)
[2016-03-15] MEDS: ATENOLOL 50 MG TABLET PO SCH (09:31)
[2016-03-15] MEDS: MULTIVITAMIN EYE FORMULA CAPSULE. PO SCH (09:31)
[2016-03-15] MEDS: HYDRALAZINE 25 MG TABLET PO SCH ×3 (09:31→21:02)
[2016-03-15] MEDS: SPIRONOLACTONE 25 MG TABLET PO SCH (09:31)
[2016-03-15] MEDS: LOSARTAN POTASSIUM 50 MG TABLET. PO SCH (09:32)
[2016-03-15] MEDS: NYSTATIN TOPICAL POWDER 15GM BOTTLE. TP SCH ×2 (09:37→21:03)
[2016-03-15] MEDS: DORZOLAMIDE 2% OPHTH SOLUTION 10ML BOTTLE. OD SCH ×2 (09:37→21:03)
--- NOTE | 2016-03-15 15:37 | PDOC ---
PROGRESS NOTES Chief Complaint Chief Complaint 1. Bilateral LE edema, venous insuff. 2. Pulm edema on CXR 3. Geriatric with mild pCM, weakness, acquired 4. some dementia 5. symptomatic bradycardia 67. HTN runs on high side History of Present Illness History of Present Illness s/p lasix IV still BP high HR 60s, still on atenolol, clonidine PO Dtr at bedside Pt lives in [facility] NO leg swelling, or at least has improved PLAN: dc clonidine BAck tp [facility] if ok with cards Await PT to work with her today Vitals Vitals Vital Signs Date Time Temp Pulse Resp B/P Pulse Ox O2 Delivery O2 Flow Rate FiO2 03/15/16 14:53 54 141/60 03/15/16 11:00 98.1 16 95 Room Air 98.1 03/14/16 23:35 2.0 Physical Exam General: Alert, Cooperative, No acute distress, Other (oriented to person and place) Heart: Regular rate, Other (2/6 systolic murmur ) Abdomen: Soft, No tenderness Extremities: No cyanosis, Normal pulses, Other (1-2+ bi LE edema, chronic venous stasis changes to bi LE ) Skin: No breakdown, No significant lesion Review of Systems Review of Systems denies, CO, SOA, more leg swelling, r0slbssfml, abd pain , dizzy etc Assessment and Plan Assessmemt and Plan Problems Medical Problems: (1) Acute CHF Status: Acute (2) Acute congestive heart failure Status: Acute (3) Hypoxia Status: Acute (4) Moderate protein malnutrition Status: Acute Problems: Comment Review of Relevant I have reviewed the following items clarita (where applicable) has been applied. Labs Laboratory Tests Test 03/13/16 15:38 03/13/16 15:49 03/13/16 23:00 03/14/16 01:30 White Blood Count 6.7x10^3/uL (4.0-11.0) Red Blood Count 3.52x10^6/uL (3.50-5.40) Hemoglobin 10.2g/dL (12.0-15.5) Hematocrit 31.6% (36.0-47.0) Mean Corpuscular Volume 90fL (79-100) Mean Corpuscular Hemoglobin 29pg (25-35) Mean Corpuscular Hemoglobin Concent 32g/dL (31-37) Red Cell Distribution Width 13.7% (11.5-14.5) Platelet Count 281x10^3/uL (140-400) Neutrophils (%) (Auto) 70% (31-73) Lymphocytes (%) (Auto) 20% (24-48) Monocytes (%) (Auto) 6% (0-9) Eosinophils (%) (Auto) 4% (0-3) Basophils (%) (Auto) 1% (0-3) Neutrophils # (Auto) 4.7x10^3uL (1.8-7.7) Lymphocytes # (Auto) 1.3x10^3/uL (1.0-4.8) Monocytes # (Auto) 0.4x10^3/uL (0.0-1.1) Eosinophils # (Auto) 0.2x10^3/uL (0.0-0.7) Basophils # (Auto) 0.0x10^3/uL (0.0-0.2) Sodium Level 141mmol/L (136-145) Potassium Level 4.2mmol/L (3.5-5.1) Chloride Level 103mmol/L (98-107) Carbon Dioxide Level 30mmol/L (21-32) Anion Gap 8 (6-14) Blood Urea Nitrogen 31mg/dL (7-20) Creatinine 1.1mg/dL (0.6-1.0) Estimated GFR (Cockcroft-Gault) 46.8 BUN/Creatinine Ratio 28 (6-20) Glucose Level 118mg/dL (70-99) Calcium Level 8.8mg/dL (8.5-10.1) Total Bilirubin 0.3mg/dL (0.2-1.0) Aspartate Amino Transf (AST/SGOT) 15U/L (15-37) Alanine Aminotransferase (ALT/SGPT) 16U/L (14-59) Alkaline Phosphatase 76U/L (46-116) Creatine Kinase 36U/L (26-192) Creatine Kinase MB (Mass) 0.7ng/mL (0.0-3.6) Creatine Kinase MB Relative Index % (0-4) Troponin I Quantitative < 0.017ng/mL (0.000-0.055) < 0.017ng/mL (0.000-0.055) XS-Tjh-Q-Type Natriuretic Peptide 1379pg/mL (0-449) Total Protein 7.3g/dL (6.4-8.2) Albumin 2.8g/dL (3.4-5.0) Albumin/Globulin Ratio 0.6 (1.0-1.7) Influenza Type A Antigen Negative (NEGATIVE) Influenza Type B Antigen Negative (NEGATIVE) Nasal Screen MRSA (PCR) Negative (Negative) Test 03/14/16 05:00 White Blood Count 6.7x10^3/uL (4.0-11.0) Red Blood Count 3.34x10^6/uL (3.50-5.40) Hemoglobin 9.9g/dL (12.0-15.5) Hematocrit 29.7% (36.0-47.0) Mean Corpuscular Volume 89fL (79-100) Mean Corpuscular Hemoglobin 30pg (25-35) Mean Corpuscular Hemoglobin Concent 33g/dL (31-37) Red Cell Distribution Width 13.4% (11.5-14.5) Platelet Count 239x10^3/uL (140-400) Neutrophils (%) (Auto) 61% (31-73) Lymphocytes (%) (Auto) 28% (24-48) Monocytes (%) (Auto) 8% (0-9) Eosinophils (%) (Auto) 3% (0-3) Basophils (%) (Auto) 1% (0-3) Neutrophils # (Auto) 4.1x10^3uL (1.8-7.7) Lymphocytes # (Auto) 1.9x10^3/uL (1.0-4.8) Monocytes # (Auto) 0.5x10^3/uL (0.0-1.1) Eosinophils # (Auto) 0.2x10^3/uL (0.0-0.7) Basophils # (Auto) 0.0x10^3/uL (0.0-0.2) Sodium Level 141mmol/L (136-145) Potassium Level 3.8mmol/L (3.5-5.1) Chloride Level 103mmol/L (98-107) Carbon Dioxide Level 30mmol/L (21-32) Anion Gap 8 (6-14) Blood Urea Nitrogen 28mg/dL (7-20) Creatinine 0.9mg/dL (0.6-1.0) Estimated GFR (Cockcroft-Gault) 59.0 Glucose Level 100mg/dL (70-99) Calcium Level 8.5mg/dL (8.5-10.1) Troponin I Quantitative < 0.017ng/mL (0.000-0.055) Medications Current Medications Sodium Chloride (Iv Sodium Chloride 0.9% 1000ml Bag) 1,000 ml @ 100 mls/hr Q10H IV Last administered on 03/13/16 16:39; Start 03/13/16 at 16:00; Stop at 17:57; Status DC Ondansetron HCl (Zofran) 4 mg PRN Q8HRS PRN IV NAUSEA/VOMITING; Start 03/13/16 at 17:15; Stop 03/13/16 at 17:57; Status DC Acetaminophen (Tylenol) 650 mg PRN Q4HRS PRN PO FEVER; Start 03/13/16 at 17:15 ; Stop 03/14/16 at 12:52; Status DC Furosemide (Lasix) 60 mg 1X ONCE IVP Last administered on 03/13/16 17:40; Start 03/13/16 at 17:30; Stop 03/13/16 at 17:31; Status DC Ondansetron HCl (Zofran) 4 mg PRN Q6HRS PRN IV NAUSEA/VOMITING; Start 03/13/16 at 17:56 Acetaminophen/ Hydrocodone Bitart (Lortab 5/325) 1 tab PRN Q4HRS PRN PO PAIN; Start 03/13/16 at 18:00 Morphine Sulfate 1 mg PRN Q2HR PRN IV PAIN; Start 03/13/16 at 18:00 Enoxaparin Sodium (Lovenox 30mg Syringe) 30 mg Q24H SQ Last administered on 19:55; Start 03/13/16 at 19:00 Acetaminophen (Tylenol) 650 mg PRN Q6HRS PRN PO MILD PAIN / TEMP; Start at 03:30 Alprazolam (Xanax) 0.25 mg PRN Q8HRS PRN PO ANXIETY / AGITATION; Start at 03:30 Clonidine HCl (Catapres) 0.2 mg BID PO ; Start 03/14/16 at 09:00 Donepezil HCl (Aricept) 5 mg HS PO Last administered on 03/14/16 19:55; Start 03/14/16 at 21:00 Dorzolamide HCl (Trusopt) 1 drop BID OD Last administered on 03/15/16 09:37; Start 03/14/16 at 09:00 Furosemide (Lasix) 40 mg DAILY PO Last administered on 03/15/16 09:30; Start 03/14/16 at 09:00 Hydralazine HCl (Apresoline) 25 mg TID PO Last administered on 03/15/16 14:53 ; Start 03/14/16 at 09:00 Meloxicam (Mobic) 7.5 mg DAILY PO Last administered on 03/15/16 09:30; Start 03/14/16 at 09:00 Fish Oil (Fish Oil) 1,000 mg DAILY08 PO Last administered on 03/15/16 09:30; Start 03/14/16 at 08:00 Sertraline HCl (Zoloft) 25 mg QHS PO Last administered on 03/14/16 19:55; Start 03/14/16 at 21:00 Simvastatin (Zocor) 40 mg QHS PO Last administered on 03/14/16 19:55; Start at 21:00 Spironolactone (Aldactone) 25 mg DAILY PO Last administered on 03/15/16 09:31 ; Start 03/14/16 at 09:00 Atenolol (Tenormin) 100 mg DAILY PO Last administered on 03/15/16 09:31; Start 03/14/16 at 09:00 Latanoprost (Xalatan) 1 drop QHS OD Last administered on 03/14/16 19:56; Start 03/14/16 at 21:00 Multivitamins/ Minerals (Ocuvite Lutein) 1 cap DAILY PO Last administered on 09:31; Start 03/14/16 at 09:00 Nystatin (Nystop) 1 yessi BID TP Last administered on 03/15/16 09:37; Start at 09:00 Losartan Potassium (Cozaar) 100 mg DAILY PO Last administered on 03/15/16 09: 32; Start 03/14/16 at 09:00 Hydralazine HCl (Apresoline) 10 mg PRN Q4HRS PRN IVP ELEVATED BP, SEE COMMENTS Last administered on 03/15/16 04:03; Start 03/14/16 at 09:30 Active Scripts Active Reported Combigan Eye Drops (Brimonidine Tartrate/Timolol) 5 Ml Drops 5 Ml OP BID Clonidine Hcl 0.2 Mg Tablet 0.2 Mg PO BID Aricept (Donepezil Hcl) 5 Mg Tablet 5 Mg PO HS Atenolol 100 Mg Tablet 100 Mg PO DAILY Xanax (Alprazolam) 0.25 Mg Tablet 0.25 Mg PO PRN Q8HRS PRN Vitamin D-3 (Cholecalciferol (Vitamin D3)) 2,000 Unit Capsule 1,000 Unit PO Tylenol (Acetaminophen) 325 Mg Tablet 650 Mg PO PRN Q6HRS Spironolactone 25 Mg Tablet 25 Mg PO DAILY Simvastatin 40 Mg Tablet 1 Tab PO QHS Sertraline Hcl 25 Mg Tablet 25 Mg PO QHS Nystatin 1 Each Powder.ea. 1 Each PO BID Meloxicam 7.5 Mg Tablet 7.5 Mg PO DAILY Lutein 20 Mg Capsule 20 Mg PO DAILY Lumigan (Bimatoprost) 2.5 Ml Drops 2.5 Ml OD QHS Hydralazine Hcl 25 Mg Tablet 1 Tab PO TID Furosemide 40 Mg Tablet 40 Mg PO DAILY Fish Oil 1,000 Mg Capsule ([place]-3 Fatty Acids/Fish Oil) 1 Each Capsule 2 Each PO DAILY08 Dorzolamide Hcl 10 Ml Drops 1 Drop OD BID Diovan (Valsartan) 320 Mg Tablet 320 Mg PO DAILY Vitals/I & O Vital Sign - Last 24 Hours 03/14/16 03/14/16 03/14/16 03/14/16 15:56 19:15 19:54 20:00 Temp 97.9 97.9 Pulse 58 63 56 Resp 18 B/P 142/56 80/62 193/80 Pulse Ox 95 O2 Delivery Nasal Cannula Nasal Cannula O2 Flow Rate 2.0 2.0 03/14/16 03/14/16 03/15/16 03/15/16 22:04 23:35 03:10 04:03 Temp 97.9 98.6 97.9 98.6 Pulse 56 68 78 74 Resp 16 16 B/P 181/84 127/63 183/62 183/62 Pulse Ox 95 93 O2 Delivery Nasal Cannula Room Air O2 Flow Rate 2.0 03/15/16 03/15/16 03/15/16 03/15/16 06:05 07:00 08:01 09:31 Temp 97.4 97.4 Pulse 72 72 Resp 20 B/P 162/70 183/65 183/65 Pulse Ox 91 O2 Delivery Room Air Room Air 03/15/16 03/15/16 03/15/16 03/15/16 09:31 09:32 11:00 14:53 Temp 98.1 98.1 Pulse 72 72 63 54 Resp 16 B/P 183/65 183/65 172/65 141/60 Pulse Ox 95 O2 Delivery Room Air Intake and Output 03/14/16 03/14/16 03/15/16 15:00 23:00 07:00 Intake Total 120 ml Balance 120 ml KORIN AVERY MD Mar 15, 2016 15:37
--- NOTE | 2016-03-15 16:06 | CARD ---
APPROVED REPORT EXAM: Two-dimensional and M-mode echocardiogram with Doppler and color Doppler. Other Information Quality : Average Rhythm : NSR INDICATION Peripheral Edema Murmur 2D DIMENSIONS Left Atrium(2D)3.0 (1.6-4.0cm)IVSd1.2 (0.7-1.1cm) Aortic Root(2D)3.7 (2.0-3.7cm)LVDd5.0 (3.9-5.9cm) LVOT Diameter2.1 (1.8-2.4cm)PWd1.2 (0.7-1.1cm) LVDs3.6 (2.5-4.0cm)FS (%) 27.9 % SV62.2 mlLVEF(%)53.8 (>50%) Aortic Valve AoV Peak Suhail.142.7cm/sAoV VTI33.9cm AO Peak GR.8.1mmHgLVOT VTI 25.99cm AO Mean GR.5mmHgAVA (VTI)2.58cm2 AI P 1/2 [id number] Mitral Valve MV E Qztnqpch66.8cm/sMV E Peak Gr.6mmHg MV DECEL [id number] A Vyazytnq173.0cm/s MV E Mean Gr.2mmHgMV [id number] E/A Ratio0.4MV A [id number] MVA (PHT)4.40cm2 TDI Lateral E' P. V7.72cm/sMedial E' P. V5.73cm/s E/Lateral E'6.1E/Medial E'8.2 Tricuspid Valve TR P. [id number]/sRAP [id number] TR Peak Gr.[id number] LEFT VENTRICLE The left ventricle is normal size. There is borderline concentric left ventricular hypertrophy. Left ventricle systolic function is normal. The Ejection Fraction is 55%. There is normal LV segmental wal l motion. Tissue Doppler imaging reveals mild left ventricular diastolic dysfunction. Transmitral Dop pler flow pattern is Grade I-abnormal relaxation pattern. RIGHT VENTRICLE The right ventricle is normal size. The right ventricular systolic function is normal. ATRIA The left atrium size is normal. The right atrium size is normal. The interatrial septum is intact wit h no evidence for an atrial septal defect or patent foramen ovale as noted on 2-D or Doppler imaging. AORTIC VALVE The aortic valve is trileaflet. Doppler and Color Flow revealed moderate aortic regurgitation. There is no significant aortic valvular stenosis. MITRAL VALVE Mitral annular calcification is mild. There is no mitral valve stenosis. Doppler and Color Flow revea led mild mitral regurgitation. TRICUSPID VALVE The tricuspid valve is normal in structure and function. Doppler and Color Flow revealed mild tricusp id regurgitation. The PA pressure was estimated at 35 mmHg. There is no tricuspid valve stenosis. PULMONIC VALVE The pulmonic valve is not well visualized. Doppler and Color Flow revealed trace pulmonic valvular re gurgitation. There is no pulmonic valvular stenosis. GREAT VESSELS The aortic root is mildly enlarged. The ascending aorta is Severely dilated. The IVC is normal in siz e and collapses >50% with inspiration. PERICARDIAL EFFUSION There is no evidence of significant pericardial effusion. Critical Notification Physician Notified Date: 03/15/2016 Time: 10:12 Physician Name:Dr. Leija Critical Value: Yes <Conclusion> Left ventricle systolic function is normal. The Ejection Fraction is 55%. There is normal LV segmental wall motion. Transmitral Doppler flow pattern is Grade I-abnormal relaxation pattern. The ascending aorta is everely dilated at 6.3 cm. Moderate aortic regurgitation. Mld mitral regurgitation. Mild tricuspid regurgitation. The PA pressure was estimated at 35 mmHg. There is no evidence of significant pericardial effusion.
[2016-03-15] MEDS: ENOXAPARIN 30 MG/0.3 ML DISP.SYRIN. SQ SCH (18:00)
[2016-03-15] MEDS: SERTRALINE 25 MG TABLET. PO SCH (21:02)
[2016-03-15] MEDS: SIMVASTATIN 40 MG TABLET. PO SCH (21:02)
[2016-03-15] MEDS: DONEPEZIL HCL 5 MG TABLET. PO SCH (21:02)
[2016-03-15] MEDS: LATANOPROST 0.005% OPHTH SOLUTION 2.5ML BOTTLE. OD SCH (21:03)
[2016-03-16 03:00] VITALS: BP 168/74
[2016-03-16 07:00] VITALS: BP 201/83
[2016-03-16] MEDS: MULTIVITAMIN EYE FORMULA CAPSULE. PO SCH (08:29)
[2016-03-16] MEDS: OMEGA-3 FATTY ACIDS/FISH OIL 1,000 MG CAPSULE. PO SCH (08:29)
[2016-03-16] MEDS: FUROSEMIDE 40 MG TABLET PO SCH (08:30)
[2016-03-16] MEDS: ATENOLOL 50 MG TABLET PO SCH (08:30)
[2016-03-16] MEDS: SPIRONOLACTONE 25 MG TABLET PO SCH (08:30)
[2016-03-16] MEDS: LOSARTAN POTASSIUM 50 MG TABLET. PO SCH (08:31)
[2016-03-16] MEDS: MELOXICAM 7.5 MG TABLET PO SCH (08:31)
[2016-03-16] MEDS: hydrALAZINE 20 MG/ML VIAL. IVP PRN (08:34)
[2016-03-16] MEDS: NYSTATIN TOPICAL POWDER 15GM BOTTLE. TP SCH (08:35)
[2016-03-16] MEDS: DORZOLAMIDE 2% OPHTH SOLUTION 10ML BOTTLE. OD SCH (08:35)
[2016-03-16] MEDS: HYDRALAZINE 25 MG TABLET PO SCH (09:22)
[2016-03-16 10:46] VITALS: BP 139/63
--- NOTE | 2016-03-16 11:55 | PDOC ---
PROGRESS NOTES Chief Complaint Chief Complaint 1. Bilateral LE edema, venous insuff. 2. Pulm edema on CXR 3. Geriatric with mild pCM, weakness, acquired 4. some dementia 5. symptomatic bradycardia 67. HTN runs on high side History of Present Illness History of Present Illness s/p lasix IV BP high HX bradycardia - clinidien dcd No issues, dtr at bedside legs better] \Pt lives in [facility] LT[facility] PALN: Inc hydralazine to 50 TID Ok to dc to [facility] if ok with cards Dw RN Vitals Vitals Vital Signs Date Time Temp Pulse Resp B/P Pulse Ox O2 Delivery O2 Flow Rate FiO2 03/16/16 10:46 97.9 49 18 139/63 92 Room Air 97.9 Physical Exam General: Alert, Cooperative, No acute distress, Other (oriented to person and place) Heart: Regular rate, Other (2/6 systolic murmur ) Abdomen: Soft, No tenderness Extremities: No cyanosis, Normal pulses, Other (1-2+ bi LE edema, chronic venous stasis changes to bi LE ) Skin: No breakdown, No significant lesion Review of Systems Review of Systems asleep - did not awaken Assessment and Plan Assessmemt and Plan Problems Medical Problems: (1) Acute CHF Status: Acute (2) Acute congestive heart failure Status: Acute (3) Hypoxia Status: Acute (4) Moderate protein malnutrition Status: Acute Problems: Comment Review of Relevant I have reviewed the following items clarita (where applicable) has been applied. Medications Current Medications Sodium Chloride (Iv Sodium Chloride 0.9% 1000ml Bag) 1,000 ml @ 100 mls/hr Q10H IV Last administered on 03/13/16 16:39; Start 03/13/16 at 16:00; Stop at 17:57; Status DC Ondansetron HCl (Zofran) 4 mg PRN Q8HRS PRN IV NAUSEA/VOMITING; Start 03/13/16 at 17:15; Stop 03/13/16 at 17:57; Status DC Acetaminophen (Tylenol) 650 mg PRN Q4HRS PRN PO FEVER; Start 03/13/16 at 17:15 ; Stop 03/14/16 at 12:52; Status DC Furosemide (Lasix) 60 mg 1X ONCE IVP Last administered on 03/13/16 17:40; Start 03/13/16 at 17:30; Stop 03/13/16 at 17:31; Status DC Ondansetron HCl (Zofran) 4 mg PRN Q6HRS PRN IV NAUSEA/VOMITING; Start 03/13/16 at 17:56 Acetaminophen/ Hydrocodone Bitart (Lortab 5/325) 1 tab PRN Q4HRS PRN PO PAIN; Start 03/13/16 at 18:00 Morphine Sulfate 1 mg PRN Q2HR PRN IV PAIN; Start 03/13/16 at 18:00 Enoxaparin Sodium (Lovenox 30mg Syringe) 30 mg Q24H SQ Last administered on 18:00; Start 03/13/16 at 19:00 Acetaminophen (Tylenol) 650 mg PRN Q6HRS PRN PO MILD PAIN / TEMP; Start at 03:30 Alprazolam (Xanax) 0.25 mg PRN Q8HRS PRN PO ANXIETY / AGITATION; Start at 03:30 Clonidine HCl (Catapres) 0.2 mg BID PO ; Start 03/14/16 at 09:00; Stop 03/15/16 at 15:38; Status DC Donepezil HCl (Aricept) 5 mg HS PO Last administered on 03/15/16 21:02; Start 03/14/16 at 21:00 Dorzolamide HCl (Trusopt) 1 drop BID OD Last administered on 03/16/16 08:35; Start 03/14/16 at 09:00 Furosemide (Lasix) 40 mg DAILY PO Last administered on 03/16/16 08:30; Start 03/14/16 at 09:00 Hydralazine HCl (Apresoline) 25 mg TID PO Last administered on 03/16/16 09:22 ; Start 03/14/16 at 09:00; Stop 03/16/16 at 09:31; Status DC Meloxicam (Mobic) 7.5 mg DAILY PO Last administered on 03/16/16 08:31; Start 03/14/16 at 09:00 Fish Oil (Fish Oil) 1,000 mg DAILY08 PO Last administered on 03/16/16 08:29; Start 03/14/16 at 08:00 Sertraline HCl (Zoloft) 25 mg QHS PO Last administered on 03/15/16 21:02; Start 03/14/16 at 21:00 Simvastatin (Zocor) 40 mg QHS PO Last administered on 03/15/16 21:02; Start at 21:00 Spironolactone (Aldactone) 25 mg DAILY PO Last administered on 03/16/16 08:30 ; Start 03/14/16 at 09:00 Atenolol (Tenormin) 100 mg DAILY PO Last administered on 03/16/16 08:30; Start 03/14/16 at 09:00 Latanoprost (Xalatan) 1 drop QHS OD Last administered on 03/15/16 21:03; Start 03/14/16 at 21:00 Multivitamins/ Minerals (Ocuvite Lutein) 1 cap DAILY PO Last administered on 08:29; Start 03/14/16 at 09:00 Nystatin (Nystop) 1 yessi BID TP Last administered on 03/16/16 08:35; Start at 09:00 Losartan Potassium (Cozaar) 100 mg DAILY PO Last administered on 03/16/16 08: 31; Start 03/14/16 at 09:00 Hydralazine HCl (Apresoline) 10 mg PRN Q4HRS PRN IVP ELEVATED BP, SEE COMMENTS Last administered on 03/16/16 08:34; Start 03/14/16 at 09:30 Hydralazine HCl (Apresoline) 50 mg TID PO ; Start 03/16/16 at 14:00 Active Scripts Active Reported Combigan Eye Drops (Brimonidine Tartrate/Timolol) 5 Ml Drops 5 Ml OP BID Clonidine Hcl 0.2 Mg Tablet 0.2 Mg PO BID Aricept (Donepezil Hcl) 5 Mg Tablet 5 Mg PO HS Atenolol 100 Mg Tablet 100 Mg PO DAILY Xanax (Alprazolam) 0.25 Mg Tablet 0.25 Mg PO PRN Q8HRS PRN Vitamin D-3 (Cholecalciferol (Vitamin D3)) 2,000 Unit Capsule 1,000 Unit PO Tylenol (Acetaminophen) 325 Mg Tablet 650 Mg PO PRN Q6HRS Spironolactone 25 Mg Tablet 25 Mg PO DAILY Simvastatin 40 Mg Tablet 1 Tab PO QHS Sertraline Hcl 25 Mg Tablet 25 Mg PO QHS Nystatin 1 Each Powder.ea. 1 Each PO BID Meloxicam 7.5 Mg Tablet 7.5 Mg PO DAILY Lutein 20 Mg Capsule 20 Mg PO DAILY Lumigan (Bimatoprost) 2.5 Ml Drops 2.5 Ml OD QHS Hydralazine Hcl 25 Mg Tablet 1 Tab PO TID Furosemide 40 Mg Tablet 40 Mg PO DAILY Fish Oil 1,000 Mg Capsule ([place]-3 Fatty Acids/Fish Oil) 1 Each Capsule 2 Each PO DAILY08 Dorzolamide Hcl 10 Ml Drops 1 Drop OD BID Diovan (Valsartan) 320 Mg Tablet 320 Mg PO DAILY Vitals/I & O Vital Sign - Last 24 Hours 03/15/16 03/15/16 03/15/16 03/15/16 14:53 15:34 19:10 20:00 Temp 98.1 97.8 98.1 97.8 Pulse 54 54 55 Resp 16 20 B/P 141/60 140/61 174/50 Pulse Ox 95 91 O2 Delivery Room Air Room Air Room Air 03/15/16 03/15/16 03/15/16 03/16/16 21:02 23:35 23:59 03:00 Temp 98.2 98.1 98.2 98.1 Pulse 55 66 62 52 Resp 20 20 B/P 174/50 197/65 166/102 168/74 Pulse Ox 93 95 O2 Delivery Room Air Room Air 03/16/16 03/16/16 03/16/16 03/16/16 07:00 08:30 08:31 08:34 Temp 97.6 97.6 Pulse 48 50 50 56 Resp 17 B/P 201/83 201/83 201/83 201/83 Pulse Ox 91 O2 Delivery Room Air 03/16/16 03/16/16 09:22 10:46 Temp 97.9 97.9 Pulse 57 49 Resp 18 B/P 201/83 139/63 Pulse Ox 92 O2 Delivery Room Air Intake and Output 03/15/16 03/15/16 03/16/16 15:00 23:00 07:00 Intake Total 120 ml 100 ml Output Total 100 ml 3 ml Balance 20 ml 97 ml KORIN AVERY MD Mar 16, 2016 11:55
--- NOTE | 2016-03-16 12:42 | PDOC ---
CARDIO Progress Notes Date and Time Date of Service 03/16/16 Time of Evaluation 1315 Subjective Subjective: No Chest Pain, No shortness of breath, No Palpitations Vitals Vitals Vital Signs Date Time Temp Pulse Resp B/P Pulse Ox O2 Delivery O2 Flow Rate FiO2 03/16/16 10:46 97.9 49 18 139/63 92 Room Air 97.9 Weight Weight [ ] Input and Output Intake and Output Intake and Output 03/16/16 07:00 Intake Total 220 ml Output Total 103 ml Balance 117 ml Intake Oral 120 ml Blood Product IV Normal Saline Flush 100 ml Output Urine Total 103 ml # Voids 2 # Bowel Movements 5 Physical Exam HEENT: Neck Supple W Full Motion Chest: Symmetric LUNGS: Clear to Auscultation Heart: S1S2, RRR Abdomen: Soft N/T Extremities: 2+ Dorsalis Pedis, No Edema Neurology: alert, follow commands, confused Assessment Assessment 1. Chronic LE edema likely secondary to chronic venous insufficiency. Improved with lasix. No clinical evidence of acute heart failure. Echo notable for Grade 1 abnormal relaxation pattern; LVEF 55%. Plan for outpatient venous duplex scan to assess the significance of venous reflux. May discharge from a cardiac standpoint and f/u in our office with Dr. Leija in 1 month. 2. Hypertension labile with clonidine discontinued. Hydralazine increased 3. Sinus bradycardia, improved clonidine discontinue hold atenolol as needed. 4. Diabetes per PCP 5. Dementia 6. Ascending aortic aneurysm dilated at 6.3 cm per echo recommend medical management given advanced age, physical capability, and dementia DPOA requesting to make patient DNR/DNI- will consult social work for outs of hospital DNR WILFRIDO DRIVER APRN Mar 16, 2016 12:41
[2016-03-16] MEDS ORDERED: HYDRALAZINE 25 MG TABLET PO SCH (14:00)
[2016-03-16 14:15] VITALS: BP 139/63
--- NOTE | 2016-03-16 14:31 | PDOC3 ---
Discharge Summary Visit Information Date of Admission: Mar 13, 2016 Date of Discharge: Mar 16, 2016 Admitting Diagnosis Comment: 1. Bilateral LE edema, venous insuff. 2. Pulm edema on CXR 3. Geriatric with mild pCM, weakness, acquired 4. some dementia 5. symptomatic bradycardia 67. HTN runs on high side Final Diagnosis Problems Medical Problems: (1) Acute CHF Status: Acute (2) Acute congestive heart failure Status: Acute (3) Dementia Status: Acute (4) Hypoxia Status: Acute (5) Moderate protein malnutrition Status: Acute Brief Hospital Course Allergies Allergies Coded Allergies Type Severity Reaction Last Updated Verified Penicillins Allergy Intermediate 03/13/16 Yes amlodipine Allergy Intermediate 03/13/16 Yes influenza virus vacc trivalent, split Allergy Intermediate 03/13/16 Yes Vital Signs Vital Signs Date Time Temp Pulse Resp B/P Pulse Ox O2 Delivery O2 Flow Rate FiO2 03/16/16 14:15 49 139/63 03/16/16 10:46 97.9 18 92 Room Air 97.9 Brief Hospital Course Ms. Loza is a 89 old FEmale lives in SNU admitted for LE edema, treated with IV lasix, better, co managed with cards. Echo shows good ef but very dilated ascending aorta, course remarkable for bradycardia needed to stop clonidine, bP on high side, needed to inc hydralazine megan given dilated aorta to 6.3 cm (need to control BP). 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 Information Condition at Discharge: Improved, Stable Disposition/Orders: Other (snf) Scheduled Acetaminophen (Tylenol) 650 MG PO PRN Q6HRS (Reported) Atenolol (Atenolol) 100 MG PO DAILY (Reported) Bimatoprost (Lumigan) 2.5 ML OD QHS (Reported) Brimonidine Tartrate/Timolol (Combigan Eye Drops) 5 ML OP BID (Reported) Clonidine Hcl (Clonidine Hcl) 0.2 MG PO BID (Reported) Donepezil Hcl (Aricept) 5 MG PO HS (Reported) Dorzolamide Hcl (Dorzolamide Hcl) 1 DROP OD BID (Reported) Furosemide (Furosemide) 40 MG PO DAILY (Reported) Hydralazine Hcl (Hydralazine Hcl) 1 TAB PO TID (Reported) Lutein (Lutein) 20 MG PO DAILY (Reported) Meloxicam (Meloxicam) 7.5 MG PO DAILY (Reported) Nystatin (Nystatin) 1 EACH PO BID (Reported) [place]-3 Fatty Acids/Fish Oil (Fish Oil 1,000 Mg Capsule) 2 EACH PO DAILY08 ( Reported) Sertraline Hcl (Sertraline Hcl) 25 MG PO QHS (Reported) Simvastatin (Simvastatin) 1 TAB PO QHS (Reported) Spironolactone (Spironolactone) 25 MG PO DAILY (Reported) Valsartan (Diovan) 320 MG PO DAILY (Reported) Scheduled PRN Alprazolam (Xanax) 0.25 MG PO PRN Q8HRS PRN PRN ANXIETY / AGITATION (Reported) Miscellaneous Medications Cholecalciferol (Vitamin D3) (Vitamin D-3) 1,000 UNIT PO (Reported) KORIN AVERY MD Mar 16, 2016 14:31
== END 2016-03-16 15:55 | DRG 300 ==
LOC: ER 14:19 → 2 SOUTH 16:43
PROVIDERS: ADMIT Internal Medicine; ATTEND Internal Medicine
DX: I87.2 Venous insufficiency (chronic) (peripheral) (principal); E44.0 Moderate protein-calorie malnutrition; J81.1 Chronic pulmonary edema; R00.1 Bradycardia, unspecified; E11.9 Type 2 diabetes mellitus without complications; E78.00 Pure hypercholesterolemia, unspecified; F03.90 Unspecified dementia, unspecified severity, without behavioral disturbance, psychotic disturbance, mood disturbance, and anxiety; F41.9 Anxiety disorder, unspecified; H35.30 Unspecified macular degeneration; H40.9 Unspecified glaucoma; I71.2 Thoracic aortic aneurysm, without rupture; Z66 Do not resuscitate; Z82.49 Family history of ischemic heart disease and other diseases of the circulatory system; Z88.0 Allergy status to penicillin; Z68.23 Body mass index [BMI] 23.0-23.9, adult; Z88.7 Allergy status to serum and vaccine; Z90.49 Acquired absence of other specified parts of digestive tract
CPT/HCPCS: 36415; 71010; 80048; 80053; 82553; 83880; 84484; 85027; 87641; 87804; 93005; 93306; 93970; 96374; J0360; J1650; J1940; J7030; 99285-25

== ENCOUNTER → 2016-04-29 | Outpatient (CLI) | payer MEDICARE, OTHER ==
[~2016-04-29] MED LIST: ACET325T9 PO; ALPR0.25 PO; ATEN100T PO; BIMA2.5D OD; BRIM5DRO2 OP; CHOL20004 PO; CLON0.2T PO; CONTRAST GIVEN MC PRN; DONE5TAB33 PO; DORZ10DR3 OD; FURO40TA4 PO; HYDR-2868 PO; IOHEXOL 350 MG/ML 100ML VIAL. IV ONE; LUTE20CA2 PO; MELO-156 PO; NYST1POW2 PO; OMEG1CAP6 PO; SERT25TA4 PO; SIMV40TA3 PO; SPIR25TA3 PO; VALS320T2 PO
[2016-04-29 09:44] LABS: CREATININE 0.8 mg/dL (0.6-1.0); GFR 67.5
--- NOTE | 2016-04-29 15:21 | RAD ---
Indication: Thoracic aneurysm. Technique: Axial images, coronal and sagittal maximum intensity projection reformatted images, and 3-D volume rendered imaging is provided. Patient received 90 mL of intravenous Omnipaque 350 without complication. Comparison is a chest radiograph from March 13, 2016. One or more of the following individualized dose reduction techniques were utilized for this examination: 1. Automated exposure control 2. Adjustment of the mA and/or kV according to patient size 3. Use of iterative reconstruction technique Findings: Aneurysm of the ascending aorta is noted. At this sinuses, ascending aorta measures 4.2 cm. At the sinotubular junction, aorta diameter is 4.1 cm. Mid ascending aorta aneurysm measures up to 6.5 cm in diameter. There is associated atheromatous disease. There is no dissection. The arch measures 4.0 cm in diameter. Descending thoracic aorta measures up to 3.3 cm in diameter. Heart is enlarged. Small hiatal hernia is noted. There is no hilar or mediastinal adenopathy. Central airways are patent. There is no pleural effusion. There is atelectasis or scarring in the lung bases. There is mild emphysema. There is no consolidation. There is no worrisome pulmonary nodule. There is mild fatty infiltration of the liver. There is a probable cyst in each kidney. There is a partially included lesion in the right kidney which is not a cyst measuring at least 10 cm in size, no prior imaging with which to compare. 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 There are degenerative changes in the spine. Impression: 1. Thoracic aortic aneurysm with measurements provided above. No associated dissection. 2. Emphysema. 3. Right renal lesion is not a simple cyst, is only partially included on this study. This could represent hemorrhagic cyst or small renal cell carcinoma. Comparison to any prior's would be recommended. 4 Simple cysts in each kidney.
--- NOTE | 2016-05-01 10:30 | RAD ---
APPROVED REPORT Patient Location : OUT-PATIENT Indications venous insufficiency Deep System Deep Venous Reflux present : No Findings Grayscale images of the bilateral GSV and LSV do no demonstrate reflux. The R GSV measures 0.62 cm an d the left GSV measures 0.57 cm. Critical Notification Critical Value: No <Conclusion> Negative reflux study in the superficial veins of the lower extremities.
== END | disposition home or self-care (01) ==
LOC: US 08:14
PROVIDERS: ATTEND Internal Medicine Cardiovascular Disease
DX: I71.2 Thoracic aortic aneurysm, without rupture (principal); K44.9 Diaphragmatic hernia without obstruction or gangrene; J98.11 Atelectasis; N28.1 Cyst of kidney, acquired; J43.9 Emphysema, unspecified; K76.0 Fatty (change of) liver, not elsewhere classified; N28.89 Other specified disorders of kidney and ureter; M47.899 Other spondylosis, site unspecified
CPT/HCPCS: 36415; 71275; 82565; 93970; Q9967